=== PATIENT | female | born 1965 | race Caucasian/White ===

== ENCOUNTER 2019-10-28 19:19 | Emergency (ER) | payer MEDICAID ==
[2019-10-28] MEDS ORDERED: NORMAL SALINE 500 ML IV ONE (21:07)
--- NOTE | 2019-10-28 21:10 | ER Document Report ---
ED Medical Screen (RME) - General Chief Complaint: Cough Stated Complaint: COUGH,FATIGUE Time Seen by Provider: 10/28/19 21:02 - HPI Notes: 10/28/19 21:09 Patient is a 54-year-old female with a history of breast cancer in remission, coronary artery disease, congestive heart failure, chronic kidney disease, insulin-dependent diabetes who presents complaining of generalized weakness with a constant dry cough for the past 2 weeks. She is not eating as much recently as well. Son states that she has not been laying in bed most of the time and not wanting to get up. No obvious fever noted. I have treated and performed a rapid initial assessment of this patient. A comprehensive ED assessment and evaluation of the patient, analysis of test results and completion of medical decision making process will be conducted by additional ED providers. PHYSICAL EXAMINATION: GENERAL: Well-appearing, well-nourished and in no acute distress. A&Ox4. Answers questions appropriately. Lungs: CTAB Ext: no significant edema - Related Data Allergies/Adverse Reactions: duloxetine [From Cymbalta] Allergy (Verified 10/28/19 21:02) ezetimibe [From Vytorin] Allergy (Verified 10/28/19 21:02) phenylephrine [From Sudafed PE] Allergy (Verified 10/28/19 21:01) simvastatin [From Vytorin] Allergy (Verified 10/28/19 21:02) sulfamethoxazole [From Bactrim] Adverse Reaction (Verified 10/28/19 21:01) trimethoprim [From Bactrim] Adverse Reaction (Verified 10/28/19 21:01) Physical Exam - Vital signs Vitals: Temp Pulse Resp BP Pulse Ox 98.6 F 79 16 112/52 L 98 10/28/19 19:37 10/28/19 19:37 10/28/19 19:37 10/28/19 19:37 10/28/19 19:37 Course - Vital Signs Vital signs: Temp Pulse Resp BP Pulse Ox 98.6 F 79 16 112/52 L 98 10/28/19 19:37 10/28/19 19:37 10/28/19 19:37 10/28/19 19:37 10/28/19 19:37
[2019-10-28 22:09] LABS: ABSOLUTE LYMPHOCYTES (AUTO) 1.1 10^3/uL (0.5-4.7); ABSOLUTE MONOCYTES (AUTO) 0.6 10^3/uL (0.1-1.4); ABSOLUTE NEUT (AUTO) 4.3 10^3/uL (1.7-8.2); BASOPHILS % (AUTO) 0.6 % (0-2); HEMATOCRIT 29.7 % (36.0-47.0); HEMOGLOBIN 9.5 g/dL (12.0-15.5); LYMPHOCYTES % (AUTO) 17.8 % (13-45); MEAN CORPUSCULAR HEMOGLOBIN 27.8 pg (27.0-33.4); MEAN CORPUSCULAR HGB CONC 32.1 g/dL (32.0-36.0); MEAN CORPUSCULAR VOLUME 87 fl (80-97); MONOCYTES % (AUTO) 10.4 % (3-13); PLATELET COUNT 245 10^3/uL (150-450); RED BLOOD COUNT 3.42 10^6/uL (3.72-5.28); RED CELL DISTRIBUTION WIDTH 14.5 % (11.5-14.0); SEGMENTED NEUTROPHILS % (AUTO) 71.2 % (42-78); TOTAL CELLS COUNTED % (AUTO) 100 %
--- NOTE | 2019-10-28 22:23 | RADIOLOGY REPORT (SQ) ---
EXAM DESCRIPTION: CLINICAL HISTORY: 54 years Female, cough COMPARISON: None. FINDINGS: Sternotomy. Surgical clips in the left chest wall/axilla. Right chest port with tip in the superior vena cava. Borderline heart size. Mild prominence of the main pulmonary artery. No suspicious mediastinal widening. No acute lung or pleural abnormalities. IMPRESSION: Postsurgical changes. No acute findings in the lungs.
[2019-10-28 22:28] LABS: ALBUMIN 4.1 g/dL (3.5-5.0); ALKALINE PHOSPHATASE 91 U/L (38-126); ANION GAP 12 (5-19); ASPARTATE AMINO TRANSFERASE 19 U/L (14-36); BILIRUBIN,DIRECT 0.2 mg/dL (0.0-0.4); BILIRUBIN,TOTAL 0.9 mg/dL (0.2-1.3); BLOOD UREA NITROGEN 31 mg/dL (7-20); CALCIUM 10.1 mg/dL (8.4-10.2); CARBON DIOXIDE 25 mmol/L (22-30); CHLORIDE 103 mmol/L (98-107); GLUCOSE 162 mg/dL (75-110); POTASSIUM 5.1 mmol/L (3.6-5.0); TOTAL PROTEIN 7.8 g/dL (6.3-8.2)
[2019-10-28 22:33] LABS: APPEARANCE,URINE CLEAR; BILIRUBIN,URINE NEGATIVE (NEGATIVE); COLOR,URINE YELLOW; GLUCOSE, URINE NEGATIVE (NEGATIVE); KETONES,URINE NEGATIVE (NEGATIVE); PROTEIN,URINE 30 mg/dL (NEGATIVE); URINE SPECIFIC GRAVITY 1.011; UROBILINOGEN,URINE NEGATIVE mg/dL (<2.0)
--- NOTE | 2019-10-29 00:13 | ER Document Report ---
ED Respiratory Problem - General Chief Complaint: Cough Stated Complaint: COUGH,FATIGUE Time Seen by Provider: 10/28/19 21:02 Mode of Arrival: Ambulatory Information source: Patient Notes: 54-year-old female presented to ED for complaint of persistent cough dry for the last 2 weeks. She is in [place] visiting her son for the of his child. She is from [place]. She plans to return to [place] in November. She does have a history of breast cancer in remission she has had a bilateral mastectomy with revision. She has had coronary artery disease, congestive heart failure, chronic kidney disease, insulin-dependent diabetes. She states she is not really having any problems with these she is just having a chronic cough that is causing her to be fatigue and weak. She states that time she just coughs and ask and cannot get a stop. Son states she is laying in the bed a lot and does not want to get up because of the fatigue. Patient was seen in the [facility] area and had blood work chest x-ray done the chest x-ray is negative the hemoglobin is low at 9.5 most of the rest of her labs are benign except for the kidney function and she is on chronic kidney disease. - HPI Patient complains to provider of: Cough Onset: Other - 2 weeks Duration: Continuous Initiating Event: URI Quality of pain: No pain Severity: None Pain Level: Denies Context: Hx CHF, Other - Chronic kidney disease Cough: Nonproductive Sputum amount: None Associated symptoms: Congestion, Cough, PND, Runny nose Similar symptoms previously: Yes Recently seen / treated by doctor: No - Related Data Allergies/Adverse Reactions: duloxetine [From Cymbalta] Allergy (Verified 10/28/19 21:02) ezetimibe [From Vytorin] Allergy (Verified 10/28/19 21:02) phenylephrine [From Sudafed PE] Allergy (Verified 10/28/19 21:01) simvastatin [From Vytorin] Allergy (Verified 10/28/19 21:02) sulfamethoxazole [From Bactrim] Adverse Reaction (Verified 10/28/19 21:01) trimethoprim [From Bactrim] Adverse Reaction (Verified 10/28/19 21:01) Past Medical History - General Information source: Patient - Social History Smoking Status: Former Smoker Frequency of alcohol use: None Drug Abuse: None Lives with: Alone Family History: Reviewed & Not Pertinent Patient has suicidal ideation: No Patient has homicidal ideation: No - Past Medical History Cardiac Medical History: Reports: Hx Congestive Heart Failure, Hx Coronary Artery Disease Pulmonary Medical History: Reports: None EENT Medical History: Reports: None Neurological Medical History: Reports: None Endocrine Medical History: Reports: Hx Diabetes Mellitus Type 2 Renal/ Medical History: Reports: Other - Chronic kidney disease Malignancy Medical History: Reports: Hx Breast Cancer GI Medical History: Reports: None Musculoskeletal Medical History: Reports Hx Arthritis Skin Medical History: Reports None Psychiatric Medical History: Reports: Hx Anxiety Traumatic Medical History: Reports: None Infectious Medical History: Reports: None Review of Systems - Review of Systems Constitutional: Recent illness EENT: Nose discharge, Sinus discharge Cardiovascular: No symptoms reported Respiratory: Cough Gastrointestinal: No symptoms reported Genitourinary: No symptoms reported Female Genitourinary: No symptoms reported Musculoskeletal: No symptoms reported Skin: No symptoms reported Hematologic/Lymphatic: No symptoms reported Neurological/Psychological: No symptoms reported -: Yes All other systems reviewed and negative Physical Exam - Vital signs Vitals: Temp Pulse Resp BP Pulse Ox 98.6 F 79 16 112/52 L 98 10/28/19 19:37 10/28/19 19:37 10/28/19 19:37 10/28/19 19:37 10/28/19 19:37 Interpretation: Normal - General General appearance: Appears well, Alert - HEENT Head: Normocephalic, Atraumatic Eyes: Normal Pupils: PERRL Ears: Normal External canal: Normal Tympanic membrane: Normal Sinus: Normal Nasal: Purulent discharge, Swelling Mouth/Lips: Normal Mucous membranes: Normal Pharynx: Post nasal drainage Neck: Normal - Respiratory Respiratory status: No respiratory distress Chest status: Nontender Breath sounds: Nonproductive cough Chest palpation: Normal - Cardiovascular Rhythm: Regular Heart sounds: Normal auscultation Murmur: No - Abdominal Inspection: Normal Distension: No distension Bowel sounds: Normal Tenderness: Nontender Organomegaly: No organomegaly - Back Back: Normal, Nontender - Extremities General upper extremity: Normal inspection, Nontender, Normal color, Normal ROM, Normal temperature General lower extremity: Normal inspection, Nontender, Normal color, Normal ROM, Normal temperature, Normal weight bearing. No: Jackie's sign - Neurological Neuro grossly intact: Yes Cognition: Normal Orientation: AAOx4 Alessandra Coma Scale Eye Opening: Spontaneous [place] Coma Scale Verbal: Oriented Alessandra Coma Scale Motor: Obeys Commands [place] Coma Scale Total: 15 Speech: Normal Motor strength normal: LUE, RUE, LLE, RLE Sensory: Normal - Psychological Associated symptoms: Normal affect, Normal mood - Skin Skin Temperature: Warm Skin Moisture: Dry Skin Color: Normal Course - Re-evaluation Re-evalutation: 10/29/19 10:57 Labs and x-ray results with patient and family. Written report of labs and given to patient to call her primary doctor in [place] to schedule follow-up. Patient has to have lab results done so she was going to call these lab results that she would not have to go and get her blood drawn. Patient was discharged home with prescription for Tessalon Perles and instructions for treatment of cough and cold. - Vital Signs Vital signs: Temp Pulse Resp BP Pulse Ox 98.5 F 75 17 109/57 L 96 10/29/19 00:40 10/29/19 00:40 10/29/19 00:40 10/29/19 00:40 10/29/19 00:40 - Laboratory Result Diagrams: 10/28/19 21:30 10/28/19 21:30 Laboratory results interpreted by me: 10/28/19 10/28/19 10/28/19 21:30 21:30 21:30 RBC 3.42 L Hgb 9.5 L Hct 29.7 L RDW 14.5 H Potassium 5.1 H BUN 31 H Creatinine 1.99 H Est GFR ( Amer) 31 L Est GFR (MDRD) Non-Af 26 L Glucose 162 H Urine Protein 30 H Urine Blood MODERATE H Leukocyte Esterase Rfl SMALL H - Diagnostic Test Radiology reviewed: Image reviewed, Reports reviewed Discharge - Discharge Clinical Impression: Persistent dry cough URI (upper respiratory infection) Qualifiers: URI type: unspecified viral URI Qualified Code(s): J06.9 - Acute upper respiratory infection, unspecified Condition: Stable Disposition: HOME, SELF-CARE Additional Instructions: UPPER RESPIRATORY ILLNESS: You have a viral infection of the respiratory passages -- a "cold." This common infection causes nasal congestion, drainage, and often sore throat and cough. It is highly contagious. The disease usually lasts about 10 to 14 days. There is no "cure" for the viral infection -- it must run its course. If t here is a complication, such as bacterial infection in the nose, sinuses, middle ear, or bronchial tubes, antibiotics may be required. The antibiotics won't affect the virus. Drink plenty of fluids. A humidifier may help. An expectorant medication or decongestant may make you more comfortable. Use acetaminophen or ibuprofen for fever or aches. See the doctor if fever persists over two days, if there is any significant worsening of your symptoms, or if you simply fail to improve as expected. You were recommended Claritin 10 mg. This is a [id number] medications for cough cold congestion. You could also use Flonase which is [id number] 1 spray each nostril twice a day. You could also use salt soda solution gargles. These will help to remove the drainage from the back your throat. Chloraseptic spray was [id number] that will also help with your sore throat. Salt and soda solution gargle 1 quart of water 1 tablespoon of salt 1 teaspoon of baking soda Mixed 3 ingredients together and boil for 1 minute Placed in a covered quart jar Use 1/2 ounce of cold solution to gargle 3 times a day COUGH-SUPPRESSANT & EXPECTORANT MEDICATION: You are to use a cough medication as needed for relief of symptoms. This medicine is a combination of an expectorant (to make the mucous thinner and more easily "coughed up") and a cough suppressant (to reduce the frequency of coughing). The cough-suppressant medicine is related to narcotics. You may experience mild nausea and sleepiness. Some patients who are very sensitive to narcotics may have stomach pain from this medicine. Taking the medicine with food reduces these side effects. Do not drive or work with machinery until you know how this medicine affects you. The expectorant should have no side effects. Iodine-containing expectorants (such as organidin) should not be taken by persons with active thyroid disease unless approved by your doctor. Call the doctor if you develop shortness of breath, hives, rash, itching, lightheadedness, or severe nausea and vomiting. USE OF ACETAMINOPHEN (Tylenol): Acetaminophen may be taken for pain relief or fever control. It's much sa lynne than aspirin, offering a wider range of "safe" dosages. It is safe during . Some brand names are Tylenol, Panadol, Datril, Anacin 3, Tempra, and Liquiprin. Acetaminophen can be repeated every four hours. The following are maximum recommended dosages: >89 pounds or adults 650 mg to 900 mg Acetaminophen can be repeated every four hours. Maximum dose not to exceed 4000 mg a day. FOLLOW-UP CARE: If you have been referred to a physician for follow-up care, call the [facility] office for an appointment as you were instructed or within the next two days. If you experience worsening or a significant change in your symptoms, notify the physician immediately or return to the Emergency Department at any time for re-evaluation. Call your primary doctor in [place] and gave them the results of all the tests that were done. Prescriptions: Benzonatate [Tessalon Perle 100 mg Capsule] 100 mg PO Q8HP PRN #40 cap PRN Reason:
[2019-10-29] MEDS ORDERED: BENZONATATE 100 MG CAPSULE PO ONE (00:14)
[2019-10-29 00:56] VITALS: BP 109/57
== END 2019-10-29 00:40 | disposition home or self-care (01) ==
LOC: ER 19:19
DX: J06.9 Acute upper respiratory infection, unspecified (principal); B97.89 Other viral agents as the cause of diseases classified elsewhere; R05 Cough; R09.82 Postnasal drip; R53.83 Other fatigue; R53.1 Weakness; I25.10 Atherosclerotic heart disease of native coronary artery without angina pectoris; E11.22 Type 2 diabetes mellitus with diabetic chronic kidney disease; N18.9 Chronic kidney disease, unspecified; Z85.3 Personal history of malignant neoplasm of breast; Z87.891 Personal history of nicotine dependence; Z88.8 Allergy status to other drugs, medicaments and biological substances; Z88.6 Allergy status to analgesic agent
CPT/HCPCS: 36415; 71046; 80053; 81001; 85025; 87086; 99283